=== PATIENT | female | born 1950 | race Two or more races ===

== ENCOUNTER 2020-12-06 10:15 | Inpatient (IN) | payer OTHER ==
[~2020-12-06] VITALS: Ht 154.9 cm; Wt 68.0 kg
[2020-12-06] MEDS ORDERED: FORTAMET500 MG PO (13:56)
[2020-12-06] MEDS ORDERED: LEVO-T50 MCG PO (13:56)
[2020-12-06] MEDS ORDERED: ENALAPRIL MALE2.5 MG PO (13:57)
[2020-12-06] MEDS ORDERED: CALTRATE 600+D1 EAC1 PO (13:57)
[2020-12-06] MEDS ORDERED: SIMVASTA PO (13:57)
[2020-12-06] MEDS ORDERED: VITAMIN B12 PO (13:58)
[2020-12-06] MEDS ORDERED: VITAMIN C PO (13:58)
[2020-12-06] MEDS ORDERED: VITAMIN D3 PO (13:59)
[2020-12-13] MEDS ORDERED: MIRALAX510 GM (07:58)
[2020-12-13] MEDS ORDERED: MONTELUKAST SOD10 MG (07:58)
[2020-12-13] MEDS ORDERED: SM CALCIUM (07:58)
[2020-12-13] MEDS ORDERED: ALENDRONATE SOD70 MG (07:58)
[2020-12-13] MEDS ORDERED: VITAMIN B-121000 MCG (07:59)
[2020-12-13] MEDS ORDERED: SIMVASTATIN10 MG (07:59)
[2020-12-13] MEDS ORDERED: VITAMIN C1000 MG (07:59)
[2020-12-14] MEDS ORDERED: ULTRACET PO (13:34)
== END 2020-12-14 20:30 | disposition home or self-care (01) | DRG 395 ==
LOC: O/R 12-13 06:07 → SURG 12-13 06:07 → SURH 12-13 10:15 → SURG 12-13 14:01
PROVIDERS: ADMIT Surgery; ATTEND Surgery
PROC: 0DBP8ZZ Excision of Rectum, Via Natural or Artificial Opening Endoscopic (ICD-10-PCS; principal; 2020-12-13 07:53)
DX: D12.8 Benign neoplasm of rectum (principal)